=== PATIENT | female | born 1960 | race Caucasian/White ===

== ENCOUNTER 2017-07-18 07:39 | Day surgery (SDC) | payer MEDICAID ==
[2017-07-18] MEDS ORDERED: Dextrose 5%-Lactated Ringers 1,000 ML IV SCH (08:00)
[2017-07-18] MEDS ORDERED: Glycopyrrolate 0.2 MG/ML 2 ML SDV IVPUSH ONE (08:45)
[2017-07-18] MEDS ORDERED: Propofol 200 MG/20 ML SDV ONE (09:06)
[2017-07-18] MEDS ORDERED: fentaNYL 100 MCG/2 ML SDV ONE (09:06)
[2017-07-18] MEDS ORDERED: Midazolam 1 MG/ML 2 ML SDV ONE (09:07)
[2017-07-18] MEDS ORDERED: Naloxone 0.4 MG/ML SDV ONE (10:20)
[2017-07-18 12:07] VITALS: BP 110/58
--- NOTE | 2017-08-17 11:02 | OR ---
DATE OF PROCEDURE: 07/18/2017 PREOPERATIVE DIAGNOSIS: Upper abdominal pain. POSTOPERATIVE DIAGNOSES: Upper abdominal pain associated with: 1. Mild distal gastritis and duodenitis. 2. Large gastric bezoar with retained solid food in the stomach and duodenum consistent with diabetic gastroparesis and apparent small bowel motility. OPERATIVE PROCEDURE: Upper GI endoscopy with biopsies of antrum for CLOtest. ANESTHESIA: IV sedation. INDICATION FOR PROCEDURE: This is a 57-year-old with severe type 2 diabetes mellitus, presenting with ongoing upper abdominal pain. Plan is to proceed with upper GI endoscopy and was requested to evaluate those symptoms. Potential risks of procedure including bleeding and perforation were discussed, and the patient wishes to proceed. DETAILS OF PROCEDURE: The patient was taken to the operating room and placed in a left lateral decubitus position. IV sedation was administered, after which the upper GI endoscope was passed orally through the length of the esophagus and into the stomach with retroflexion view of the fundus, thereafter through the pyloric channel and into the proximal duodenum. Findings included a normal hypopharynx, larynx, upper esophageal sphincter, and esophageal body. At the EG junction, there was some mild redness and minimal hiatal hernia was present. Upon entering the stomach, however, there was a quite striking finding that being a very large gastric bezoar. This was associated with some redness in the antrum. In the proximal duodenum, there was also some solid food present. Biopsies were obtained from the antrum and sent for CLOtest for H. pylori. Minimal bleeding from the biopsy sites was seen and the procedure then concluded. The findings would appear to confirm the suspicion of quite marked diabetic gastroparesis. The patient likely would benefit from a partial gastrectomy with Sage-en-Y reconstruction which would avoid problems with the gastroparesis as well as improve her diabetic function, so we discussed with the patient postoperatively. James Macdonald MD /[id number]
== END 2017-07-18 13:29 | disposition home or self-care (01) ==
LOC: JP.SDS 07:39
PROVIDERS: ATTEND Surgery
DX: T18.2XXA Foreign body in stomach, initial encounter (principal); K29.70 Gastritis, unspecified, without bleeding; K29.80 Duodenitis without bleeding; K44.9 Diaphragmatic hernia without obstruction or gangrene; I10 Essential (primary) hypertension; E11.9 Type 2 diabetes mellitus without complications; I25.10 Atherosclerotic heart disease of native coronary artery without angina pectoris; K21.9 Gastro-esophageal reflux disease without esophagitis; F32.9 Major depressive disorder, single episode, unspecified; I73.9 Peripheral vascular disease, unspecified; Z88.0 Allergy status to penicillin; Z88.8 Allergy status to other drugs, medicaments and biological substances; X58.XXXA Exposure to other specified factors, initial encounter; F17.200 Nicotine dependence, unspecified, uncomplicated
CPT/HCPCS: 43239; 87081; J2250; J2310; J2704; J3010; J7042; J3490